=== PATIENT | female | born 1995 | race African-American/Black ===

== ENCOUNTER 2016-09-13 15:41 | Emergency (ER) | payer BC, MEDICAID ==
[~2016-09-13] VITALS: Ht 170.2 cm; Wt 59.0 kg
[~2016-09-13 15:41] MED LIST: PRENATAL VIT
[2016-09-13 18:01] VITALS: BP 122/72
== END 2016-09-13 20:30 | disposition left against medical advice (07) ==
LOC: ER 15:42
DX: Z53.21 Procedure and treatment not carried out due to patient leaving prior to being seen by health care provider (principal)

== ENCOUNTER 2020-07-05 11:36 | Emergency (ER) | payer BC, MEDICAID ==
[~2020-07-05] VITALS: Ht 170.2 cm; Wt 67.0 kg
[2020-07-05 11:40] VITALS: BP 121/67
[2020-07-05] MEDS ORDERED: AZITHROMYCIN 500 MG TABLET PO ONE (12:00)
[2020-07-05] MEDS ORDERED: CEFTRIAXONE SODIUM 250 MG/VIAL IM ONE (12:00)
[2020-07-05] MEDS: LIDOCAINE HCL 1% 20ML VIAL (Pyxis) INJ INFIL ONE ×2 (13:09→13:19)
[2020-07-05 13:13] LABS: CLARITY URINE CLOUDY (CLEAR); COLOR URINE YELLOW (YELLOW); KETONES URINE NEGATIVE (NEGATIVE); LEUKOCYTE ESTERASE URINE 2+ (NEGATIVE); NITRITE URINE POSITIVE (NEGATIVE); OCCULT BLOOD URINE 3+ (NEGATIVE); PROTEIN URINE TRACE (NEGATIVE); SPECIFIC GRAVITY URINE 1.022 (1.005-1.030)
== END 2020-07-05 14:02 | disposition home or self-care (01) ==
LOC: ER 12:13
DX: O23.12 Infections of bladder in pregnancy, second trimester (principal); Z3A.00 Weeks of gestation of pregnancy not specified
CPT/HCPCS: 81003; 87077; 87086; 87186; 96372; 99283; J0696; J3490

== ENCOUNTER 2021-02-16 17:20 | Emergency (ER) | payer MEDICAID ==
[~2021-02-16] VITALS: Ht 167.6 cm; Wt 67.0 kg
[~2021-02-16 17:20] MED LIST changes: +AMOX-494 MT; +IBUP-2030 MT; +METR500T PO; -PRENATAL VIT
[2021-02-16 18:59] LABS: BASOPHILS % 0.7 % (0.0-2.0); EOSINOPHILS % 0.9 % (0.0-5.0); HEMOGLOBIN. 11.5 g/dL (12.0-16.0); LYMPHOCYTES % 33.3 % (20.0-50.0); MEAN CORPUSCULAR VOLUME 100.6 fL (81.0-99.0); MEAN PLATELET VOLUME 8.7 fl (7.4-10.4); MONOCYTES % 9.7 % (2.0-8.0); NEUTROPHILS % 55.4 % (40.0-76.0); PLATELET 223 x1000/uL (130-400); RED BLOOD CELL COUNT 3.38 mill/uL (4.2-5.4); RED CELL DISTRIBUTION WIDTH 15.4 % (11.6-14.6)
[2021-02-16 19:03] LABS: CHLORIDE 110 mEq/L (98-107)
[2021-02-16 19:15] LABS: B-HCG QUANTITATIVE < 1 mIU/mL (<3)
[2021-02-16] MEDS ORDERED: FLUCONAZOLE 150MG TABLET PO ONE (21:15)
[2021-02-16 21:28] VITALS: BP 123/78
== END 2021-02-16 21:37 | disposition home or self-care (01) ==
LOC: ER 17:53
DX: B37.3 Candidiasis of vulva and vagina (principal); F12.10 Cannabis abuse, uncomplicated
CPT/HCPCS: 36415; 76830; 76856; 80053; 81025; 84702; 85025; 87210; 99284; Z7610